=== PATIENT | female | born 1985 | race Caucasian/White ===

== ENCOUNTER 2017-08-17 10:44 | Emergency (ER) | END 2017-08-17 13:10 | disposition home or self-care (01) ==

== ENCOUNTER 2017-12-28 13:44 | Outpatient (CLI) | END 2017-12-28 18:50 | disposition home or self-care (01) ==

== ENCOUNTER 2018-01-03 11:21 | Outpatient (CLI) | END 2018-01-03 15:08 | disposition home or self-care (01) ==

== ENCOUNTER 2018-01-10 12:07 | Outpatient (CLI) | END 2018-01-10 14:33 | disposition home or self-care (01) ==

== ENCOUNTER 2018-01-17 13:49 | Outpatient (CLI) | END 2018-01-17 15:12 | disposition home or self-care (01) ==

== ENCOUNTER 2018-02-17 11:35 | Outpatient (CLI) | END 2018-02-17 16:30 | disposition home or self-care (01) ==

== ENCOUNTER 2018-02-18 14:12 | Outpatient (CLI) | END 2018-02-18 15:30 | disposition home or self-care (01) ==

== ENCOUNTER 2018-02-20 13:20 | Inpatient (IN) | END 2018-02-27 19:50 | disposition home or self-care (01) | DRG 783 ==